=== PATIENT | female | born 2000 | race Caucasian/White ===

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

== ENCOUNTER 2021-02-01 21:50 | Emergency (ER) | payer OTHER ==
[~2021-02-01] VITALS: Ht 154.9 cm; Wt 58.1 kg
[2021-02-01 22:55] LABS: Alanine Aminotransfer (ALT/SGP 21 U/L (12-78); Albumin, Blood 3.9 g/dL (3.4-5.0); Alk Phos 96 U/L (45-116); Anion Gap 11 mmol/L (6-16); Aspartate Aminotrans (AST/SGOT 31 U/L (12-37); Beta HCG, Quantitative, Serum 495 mIU/mL (0-3); Bilirubin, Total 0.4 mg/dL (0.1-1.0); Blood Urea Nitrogen 11 mg/dL (8-21); Bun/Creatinine Ratio 19.9 (12.0-20.0); CO2, Blood 19 mmol/L (21-32); Calcium, Blood 9.1 mg/dL (8.5-10.1); Chloride, Blood 109 mmol/L (98-108); Creatinine, Blood 0.55 mg/dL (0.40-1.00); Glomerular Filtration Rate >60 (60-); Glucose, Blood 115 mg/dL (70-99); Potassium, Blood 4.1 mmol/L (3.5-5.5); Sodium, Blood 139 mmol/L (136-145); Total Protein, Blood 7.9 g/dL (6.4-8.2)
[2021-02-01 23:06] LABS: Source, Urine Clean Catch
[2021-02-01 23:09] LABS: BASOPHILS ABSOLUTE AUTO 0.05 K/mm3 (0.00-0.23); BASOPHILS PERCENT AUTO 1 % (0-2); EOSINOPHILS ABSOLUTE AUTO 0.03 K/mm3 (0.00-0.68); EOSINOPHILS PERCENT AUTO 0 % (0-6); Hematocrit 35.7 % (33.0-51.0); Hemoglobin 11.8 g/dL (11.5-16.0); IMMATURE GRAN ABSOLUTE AUTO 0.02 K/mm3 (0.00-0.10); IMMATURE GRAN PERCENT AUTO 0 % (0-1); LYMPHOCYTES ABSOLUTE AUTO 1.93 K/mm3 (0.84-5.20); LYMPHOCYTES PERCENT AUTO 22 % (21-46); MONOCYTES ABSOLUTE AUTO 0.68 K/mm3 (0.16-1.47); MONOCYTES PERCENT AUTO 8 % (4-13); Mean Corpuscular HGB 29.6 pg (26.0-34.0); Mean Corpuscular HGB Conc 33.1 g/dL (31.5-36.5); Mean Corpuscular Volume 90 fL (80-100); Mean Platelet Volume 9.3 fL (9.1-12.4); NEUTROPHILS ABSOLUTE AUTO 6.01 K/mm3 (1.96-9.15); NEUTROPHILS PERCENT AUTO 69 % (41-73); Platelet Count 287 K/mm3 (150-400); RDW Coefficient Variation 12.7 % (11.7-14.2); RDW Standard Deviation 41.7 fL (35.1-46.3); Red Blood Cell Count 3.99 M/mm3 (3.80-5.20); White Blood Cell Count 8.72 K/mm3 (4.00-11.30)
[2021-02-01 23:17] LABS: Bilirubin, Urine Neg (Neg); Blood, Urine Neg (Neg); Glucose Qualitative, Urine Neg (Neg); Ketones, Urine Neg (Neg); Leukocyte Esterase, Urine 1+ (Neg); Nitrite, Urine Neg (Neg); Protein, Urine 1+ (Neg); Specific Gravity, Urine 1.025 (1.003-1.022); Urobilinogen, Urine NORM (Normal)
[2021-02-01 23:55] LABS: Appearance, Urine Hazy (Clear); Color, Urine Yellow (P-Yellow)
[2021-02-01 23:56] LABS: Bacteria Many /hpf; Mucus Light (0-Heavy); Red Blood Cells, Urine Not Seen /hpf (0-2); Squamous Epithelial Cells Many /hpf (Few)
== END 2021-02-02 00:04 | disposition home or self-care (01) ==
LOC: ER 21:50
PROVIDERS: Physician Assistant
DX: O20.9 Hemorrhage in early pregnancy, unspecified (principal); Z3A.01 Less than 8 weeks gestation of pregnancy
CPT/HCPCS: 36415; 76801; 76817; 80053; 81001; 84702; 85025; 86850; 86900; 86901; 87086; 99284-25

== ENCOUNTER 2021-02-05 14:56 | Emergency (ER) | payer OTHER ==
[~2021-02-05] VITALS: Ht 154.9 cm; Wt 58.1 kg
[2021-02-05 17:07] LABS: Alanine Aminotransfer (ALT/SGP 18 U/L (12-78); Albumin, Blood 3.9 g/dL (3.4-5.0); Alk Phos 97 U/L (45-116); Anion Gap 9 mmol/L (6-16); Aspartate Aminotrans (AST/SGOT 15 U/L (12-37); Bilirubin, Total 0.5 mg/dL (0.1-1.0); Blood Urea Nitrogen 7 mg/dL (8-21); Bun/Creatinine Ratio 12.5 (12.0-20.0); CO2, Blood 22 mmol/L (21-32); Chloride, Blood 108 mmol/L (98-108); Creatinine, Blood 0.56 mg/dL (0.40-1.00); Globulin, Blood 3.8 g/dL (2.2-4.0); Glomerular Filtration Rate >60 (60-); Glucose, Blood 103 mg/dL (70-99); Potassium, Blood 3.7 mmol/L (3.5-5.5); Sodium, Blood 139 mmol/L (136-145); Total Protein, Blood 7.7 g/dL (6.4-8.2)
[2021-02-05 17:37] LABS: Source, Urine Clean Catch
[2021-02-05 17:47] LABS: Appearance, Urine Clear (Clear); Bilirubin, Urine Neg (Neg); Blood, Urine Neg (Neg); Color, Urine Yellow (P-Yellow); Glucose Qualitative, Urine Neg (Neg); Ketones, Urine Neg (Neg); Leukocyte Esterase, Urine Neg (Neg); Nitrite, Urine Neg (Neg); Protein, Urine Neg (Neg); Specific Gravity, Urine 1.015 (1.003-1.022); Urobilinogen, Urine NORM (Normal)
[2021-02-05 17:53] LABS: BASOPHILS ABSOLUTE AUTO 0.05 K/mm3 (0.00-0.23); BASOPHILS PERCENT AUTO 1 % (0-2); EOSINOPHILS ABSOLUTE AUTO 0.01 K/mm3 (0.00-0.68); EOSINOPHILS PERCENT AUTO 0 % (0-6); Hematocrit 36.3 % (33.0-51.0); Hemoglobin 12.4 g/dL (11.5-16.0); IMMATURE GRAN ABSOLUTE AUTO 0.02 K/mm3 (0.00-0.10); IMMATURE GRAN PERCENT AUTO 0 % (0-1); LYMPHOCYTES ABSOLUTE AUTO 1.08 K/mm3 (0.84-5.20); LYMPHOCYTES PERCENT AUTO 12 % (21-46); MONOCYTES ABSOLUTE AUTO 0.53 K/mm3 (0.16-1.47); MONOCYTES PERCENT AUTO 6 % (4-13); Mean Corpuscular HGB 29.6 pg (26.0-34.0); Mean Corpuscular HGB Conc 34.2 g/dL (31.5-36.5); Mean Corpuscular Volume 87 fL (80-100); Mean Platelet Volume 9.4 fL (9.1-12.4); NEUTROPHILS ABSOLUTE AUTO 7.06 K/mm3 (1.96-9.15); NEUTROPHILS PERCENT AUTO 81 % (41-73); Platelet Count 320 K/mm3 (150-400); RDW Coefficient Variation 12.5 % (11.7-14.2); RDW Standard Deviation 39.8 fL (35.1-46.3); Red Blood Cell Count 4.19 M/mm3 (3.80-5.20); White Blood Cell Count 8.75 K/mm3 (4.00-11.30)
== END 2021-02-05 18:11 | disposition home or self-care (01) ==
LOC: ER 14:56
PROVIDERS: Physician Assistant
DX: O20.9 Hemorrhage in early pregnancy, unspecified (principal); Z3A.01 Less than 8 weeks gestation of pregnancy; Z79.899 Other long term (current) drug therapy
CPT/HCPCS: 36415; 76801; 76817; 80053; 81003; 84702; 85025; 86850; 86900; 86901; 99284-25

== ENCOUNTER 2022-08-12 14:58 | Emergency (ER) | payer OTHER ==
[~2022-08-12] VITALS: Ht 154.9 cm; Wt 54.0 kg
[~2022-08-12 14:58] MED LIST changes: +ONDA4ODT MM; +PRENA1 CHEW TA1.4 MG PO
[2022-08-12 16:35] VITALS: BP 114/75
[2022-08-12] MEDS ORDERED: CETI5 (17:02)
== END 2022-08-12 17:35 | disposition left against medical advice (07) ==
LOC: ER 14:58
DX: R10.2 Pelvic and perineal pain (principal); R11.2 Nausea with vomiting, unspecified
CPT/HCPCS: 76830; 76856; 99284-25

== ENCOUNTER → 2023-09-16 | Outpatient (CLI) | payer OTHER ==
[~2023-09-16] MED LIST changes: +CETI5
[2023-09-17 07:47] LABS: Bacterial Vaginosis PCR Negative (NEGATIVE); Candida Group, PCR NOT DETECTED (NOT DETECT); Candida glabrata-krusei, PCR NOT DETECTED (NOT DETECT)
[2023-09-17 08:19] LABS: Chlamydia Trachomatis Urine NOT DETECTED (NOT DETECT); Neisseria Gonorrhoea Urine NOT DETECTED (NOT DETECT)
[2023-09-19 16:22] LABS: HIV 1,2 COMBO ANTIGEN/ANTIBODY Negative (Negative)
== END ==
LOC: LAB SHORT 17:39 → LAB 17:39
PROVIDERS: Nurse Practitioner Family
DX: Z72.51 High risk heterosexual behavior (principal)
CPT/HCPCS: 86592; 87389; 87481; 87661; 87801

== ENCOUNTER → 2023-09-16 | Outpatient (CLI) | payer OTHER | LOC: LAB 17:39 → LAB SHORT 17:39 | DX: R30.0 Dysuria (principal) | CPT/HCPCS: 87086 ==

== ENCOUNTER → 2023-09-23 | Outpatient (CLI) | payer OTHER | END | disposition home or self-care (01) | LOC: LAB SHORT 18:51 | DX: R30.0 Dysuria (principal) | CPT/HCPCS: 87086 ==

== ENCOUNTER 2024-04-02 09:36 | Emergency (ER) | payer BC ==
[~2024-04-02] VITALS: Ht 157.5 cm; Wt 61.2 kg
[2024-04-02 10:21] VITALS: BP 129/92
[2024-04-02 10:52] LABS: BASOPHILS ABSOLUTE AUTO 0.06 K/mm3 (0.00-0.23); BASOPHILS PERCENT AUTO 1 % (0-2); EOSINOPHILS ABSOLUTE AUTO 0.09 K/mm3 (0.00-0.68); EOSINOPHILS PERCENT AUTO 2 % (0-6); Hematocrit 38.3 % (33.0-51.0); Hemoglobin 13.5 g/dL (11.5-16.0); IMMATURE GRAN ABSOLUTE AUTO 0.01 K/mm3 (0.00-0.10); IMMATURE GRAN PERCENT AUTO 0 % (0-1); LYMPHOCYTES ABSOLUTE AUTO 1.48 K/mm3 (0.84-5.20); LYMPHOCYTES PERCENT AUTO 29 % (21-46); MONOCYTES ABSOLUTE AUTO 0.52 K/mm3 (0.16-1.47); MONOCYTES PERCENT AUTO 10 % (4-13); Mean Corpuscular HGB 31.3 pg (26.0-34.0); Mean Corpuscular HGB Conc 35.2 g/dL (31.5-36.5); Mean Corpuscular Volume 89 fL (80-100); Mean Platelet Volume 9.2 fL (9.1-12.4); NEUTROPHILS ABSOLUTE AUTO 3.01 K/mm3 (1.96-9.15); NEUTROPHILS PERCENT AUTO 58 % (41-73); Platelet Count 326 K/mm3 (150-400); RDW Coefficient Variation 11.6 % (11.7-14.2); RDW Standard Deviation 37.9 fL (35.1-46.3); Red Blood Cell Count 4.31 M/mm3 (3.80-5.20); White Blood Cell Count 5.17 K/mm3 (4.00-11.30)
[2024-04-02 11:18] LABS: Albumin/Globulin Ratio 1.1 (0.8-1.8); Bilirubin, Total 0.4 mg/dL (0.1-1.0); Bun/Creatinine Ratio 20.8 (12.0-20.0); Calcium, Blood 8.6 mg/dL (8.5-10.1); Creatinine, Blood 0.58 mg/dL (0.40-1.00); Globulin, Blood 3.8 g/dL (2.2-4.0); Potassium, Blood 3.8 mmol/L (3.5-5.5); Total Protein, Blood 7.8 g/dL (6.4-8.2)
== END 2024-04-02 13:03 | disposition home or self-care (01) ==
LOC: ER 09:36
PROVIDERS: Student in an Organized Health Care Education/Training Program
DX: O03.9 Complete or unspecified spontaneous abortion without complication (principal); Z59.89 Other problems related to housing and economic circumstances
CPT/HCPCS: 76801; 76830; 80053; 84702; 85025; 86850; 86900; 86901; 99284-25

== ENCOUNTER → 2024-07-02 | Outpatient (CLI) | payer BC | LOC: LAB SHORT 16:00 → LAB 16:00 | DX: R30.0 Dysuria (principal) | CPT/HCPCS: 87077; 87086; 87186 ==

== ENCOUNTER 2024-07-03 11:10 | Emergency (ER) | payer BC, OTHER ==
[~2024-07-03] VITALS: Ht 157.5 cm; Wt 63.5 kg
[2024-07-03 11:32] VITALS: BP 139/101
[2024-07-03 12:27] LABS: Source, Urine Clean Catch
[2024-07-03 12:35] LABS: Appearance, Urine Clear (Clear); Blood, Urine 1+ (Neg); Glucose Qualitative, Urine Neg (Neg); Ketones, Urine Neg (Neg); Leukocyte Esterase, Urine 2+ (Neg); Nitrite, Urine Pos (Neg); Protein, Urine 2+ (Neg); Urobilinogen, Urine 4+ (Normal)
[2024-07-03 12:44] LABS: Bilirubin, Urine 3+ (Neg)
[2024-07-03 12:45] LABS: Color, Urine Orange (P-Yellow)
[2024-07-03 12:47] LABS: Bacteria Mod /hpf; Red Blood Cells, Urine 0-2 /hpf (0-2); Squamous Epithelial Cells Few /hpf (Few); White Blood Cells, Urine 25-50 /hpf (0-5)
[2024-07-03] MEDS ORDERED: CEPH500 PO (12:52)
== END 2024-07-03 12:53 | disposition home or self-care (01) ==
LOC: ER 11:10
PROVIDERS: Physician Assistant
DX: N39.0 Urinary tract infection, site not specified (principal); Z79.899 Other long term (current) drug therapy
CPT/HCPCS: 81001; 81025; 87077; 87086; 87186; 99284

== ENCOUNTER → 2025-01-30 | Outpatient (CLI) | payer BC, OTHER ==
[~2025-01-30] MED LIST changes: +ASPI81CH PO; +Percocet 5-3251 EACH PO
== END ==
LOC: LAB SHORT 17:05 → LAB 17:05
DX: R82.90 Unspecified abnormal findings in urine (principal)
CPT/HCPCS: 87086

== ENCOUNTER 2025-01-31 03:42 | Emergency (ER) | payer BC, OTHER ==
[~2025-01-31] VITALS: Ht 154.9 cm; Wt 63.5 kg
[~2025-01-31 03:42] MED LIST changes: -ASPI81CH PO; -Percocet 5-3251 EACH PO
[2025-01-31] MEDS ORDERED: ASPI81CH PO (04:41)
[2025-01-31 05:04] LABS: Source, Urine Clean Catch
[2025-01-31 05:10] LABS: BASOPHILS ABSOLUTE AUTO 0.04 K/mm3 (0.00-0.23); BASOPHILS PERCENT AUTO 1 % (0-2); EOSINOPHILS ABSOLUTE AUTO 0.06 K/mm3 (0.00-0.68); EOSINOPHILS PERCENT AUTO 1 % (0-6); Hematocrit 30.6 % (33.0-51.0); Hemoglobin 10.7 g/dL (11.5-16.0); IMMATURE GRAN ABSOLUTE AUTO 0.02 K/mm3 (0.00-0.10); IMMATURE GRAN PERCENT AUTO 0 % (0-1); LYMPHOCYTES ABSOLUTE AUTO 1.19 K/mm3 (0.84-5.20); LYMPHOCYTES PERCENT AUTO 19 % (21-46); MONOCYTES ABSOLUTE AUTO 0.46 K/mm3 (0.16-1.47); MONOCYTES PERCENT AUTO 7 % (4-13); Mean Corpuscular HGB Conc 35.0 g/dL (31.5-36.5); Mean Corpuscular Volume 88 fL (80-100); NEUTROPHILS ABSOLUTE AUTO 4.43 K/mm3 (1.96-9.15); NEUTROPHILS PERCENT AUTO 72 % (41-73); NRBC ABSOLUTE 0.00 K/mm3 (0.00-0.02); NRBC Auto 0.0 /100 WBC (0.0-0.2); Platelet Count 268 K/mm3 (150-400); RDW Coefficient Variation 12.1 % (11.7-14.2); RDW Standard Deviation 38.5 fL (35.1-46.3)
[2025-01-31 05:26] LABS: Bilirubin, Urine Neg (Neg); Color, Urine Yellow (P-Yellow); Glucose Qualitative, Urine Neg (Neg); Ketones, Urine 2+ (Neg); Leukocyte Esterase, Urine 1+ (Neg); Protein, Urine 2+ (Neg); Specific Gravity, Urine 1.020 (1.003-1.022); Urobilinogen, Urine NORM (Normal)
[2025-01-31 05:41] LABS: Alanine Aminotransfer (ALT/SGP 19.0 U/L (12-78); Albumin, Blood 3.0 g/dL (3.4-5.0); Albumin/Globulin Ratio 0.8 (0.8-1.8); Anion Gap 12.0 mmol/L (3-11); Aspartate Aminotrans (AST/SGOT 15.0 U/L (12-37); Bilirubin, Total 0.3 mg/dL (0.1-1.0); Blood Urea Nitrogen 6.0 mg/dL (8-24); CO2, Blood 19.0 mmol/L (21-32); Calcium, Blood 8.5 mg/dL (8.5-10.1); Chloride, Blood 109.0 mmol/L (98-108); Creatinine, Blood 0.46 mg/dL (0.40-1.00); Globulin, Blood 3.7 g/dL (2.2-4.0); Glucose, Blood 81.0 mg/dL (70-99); Potassium, Blood 3.6 mmol/L (3.5-5.5); Sodium, Blood 136.0 mmol/L (136-145); Total Protein, Blood 6.7 g/dL (6.4-8.2)
[2025-01-31 07:04] LABS: Source, Urine Clean Catch
[2025-01-31 07:16] LABS: Bilirubin, Urine Neg (Neg); Color, Urine Yellow (P-Yellow); Glucose Qualitative, Urine Neg (Neg); Ketones, Urine 3+ (Neg); Leukocyte Esterase, Urine 3+ (Neg); Protein, Urine 2+ (Neg); Specific Gravity, Urine 1.010 (1.003-1.022); Urobilinogen, Urine NORM (Normal)
[2025-01-31] MEDS ORDERED: CefTRIAXone Sodium 1,000 MG in NS 100 ML IV ONE (08:00)
[2025-01-31] MEDS ORDERED: CEPH500 PO (14:32)
[2025-01-31 15:02] VITALS: BP 105/72
== END 2025-01-31 15:04 | disposition home or self-care (01) ==
LOC: ER 03:42
PROVIDERS: Family Medicine
DX: O99.891 Other specified diseases and conditions complicating pregnancy (principal); R10.A1 Flank pain, right side; Z59.89 Other problems related to housing and economic circumstances; Z79.82 Long term (current) use of aspirin; Z79.2 Long term (current) use of antibiotics
CPT/HCPCS: 74181; 76770; 76815; 80053; 81001; 83690; 85025; 87086; 96365; 99284-25; A9270; J0696

== ENCOUNTER 2025-02-01 11:04 | Observation (INO) | payer BC, OTHER ==
[~2025-02-01] VITALS: Ht 154.9 cm; Wt 63.6 kg
[~2025-02-01 11:04] MED LIST changes: +ASPI81CH PO
[2025-02-01 13:02] LABS: EOSINOPHILS PERCENT AUTO 1 % (0-6); RDW Coefficient Variation 12.1 % (11.7-14.2)
[2025-02-01 13:20] LABS: Alanine Aminotransfer (ALT/SGP 20.0 U/L (12-78); Albumin, Blood 3.5 g/dL (3.4-5.0); Albumin/Globulin Ratio 0.9 (0.8-1.8); Anion Gap 9.0 mmol/L (3-11); Aspartate Aminotrans (AST/SGOT 16.0 U/L (12-37); Bilirubin, Total 0.4 mg/dL (0.1-1.0); Blood Urea Nitrogen 7.0 mg/dL (8-24); CO2, Blood 21.0 mmol/L (21-32); Calcium, Blood 9.1 mg/dL (8.5-10.1); Chloride, Blood 107.0 mmol/L (98-108); Creatinine, Blood 0.46 mg/dL (0.40-1.00); Globulin, Blood 3.9 g/dL (2.2-4.0); Glucose, Blood 98.0 mg/dL (70-99); Potassium, Blood 3.5 mmol/L (3.5-5.5); Sodium, Blood 133.0 mmol/L (136-145); Total Protein, Blood 7.4 g/dL (6.4-8.2)
[2025-02-01 13:22] LABS: BASOPHILS ABSOLUTE AUTO 0.06 K/mm3 (0.00-0.23); BASOPHILS PERCENT AUTO 1 % (0-2); EOSINOPHILS ABSOLUTE AUTO 0.06 K/mm3 (0.00-0.68); Hematocrit 33.2 % (33.0-51.0); Hemoglobin 11.9 g/dL (11.5-16.0); IMMATURE GRAN ABSOLUTE AUTO 0.08 K/mm3 (0.00-0.10); IMMATURE GRAN PERCENT AUTO 1 % (0-1); LYMPHOCYTES ABSOLUTE AUTO 1.34 K/mm3 (0.84-5.20); LYMPHOCYTES PERCENT AUTO 14 % (21-46); MONOCYTES ABSOLUTE AUTO 0.46 K/mm3 (0.16-1.47); MONOCYTES PERCENT AUTO 5 % (4-13); Mean Corpuscular HGB Conc 35.8 g/dL (31.5-36.5); Mean Corpuscular Volume 86 fL (80-100); NEUTROPHILS ABSOLUTE AUTO 7.68 K/mm3 (1.96-9.15); NEUTROPHILS PERCENT AUTO 79 % (41-73); NRBC ABSOLUTE 0.02 K/mm3 (0.00-0.02); NRBC Auto 0.2 /100 WBC (0.0-0.2); RDW Standard Deviation 37.7 fL (35.1-46.3)
[2025-02-01 15:09] LABS: Source, Urine Clean Catch
[2025-02-01 15:24] LABS: Bilirubin, Urine Neg (Neg); Color, Urine Yellow (P-Yellow); Glucose Qualitative, Urine Neg (Neg); Ketones, Urine 4+ (Neg); Leukocyte Esterase, Urine 1+ (Neg); Protein, Urine 1+ (Neg); Specific Gravity, Urine 1.025 (1.003-1.022); Urobilinogen, Urine NORM (Normal)
[2025-02-01] MEDS ORDERED: FentaNYL Citrate 50 MCG/ML 2 ML Injection IV ONE (18:20)
[2025-02-01] MEDS ORDERED: Ondansetron HCl 2 MG / ML 2ML Vial IV ONE (18:20)
[2025-02-01] MEDS ORDERED: Ketorolac Tromethamine 15mg Vial IV ONE (18:20)
[2025-02-01] MEDS ORDERED: Ondansetron HCl 2 MG / ML 2ML Vial IV PRN (18:25)
[2025-02-01] MEDS ORDERED: FentaNYL Citrate 50 MCG/ML 2 ML Injection IV PRN (18:25)
[2025-02-01] MEDS ORDERED: Ketorolac Tromethamine 30mg Vial IV PRN (18:30)
[2025-02-01 20:58] VITALS: BP 100/66
[2025-02-01] MEDS ORDERED: CefTRIAXone Sodium 1,000 MG in NS 100 ML IV SCH (21:00)
--- NOTE | 2025-02-02 00:11 | NUR ---
PER [facility] IN [facility] THEY ARE UNABLE TO OBTAIN HEART TONES ON TWINS ORDERED DUE TO INABILITY TO CONFIRM THEY ARE OBTAINING HEART BEAT OF 1 BABY OR TWO.ALSO, CHANTALE STATED IT MAY BE DIFFICULT TO OBTAIN HEART TONES IN GENERAL DUE TO GESTATIONAL AGE OF 16 WEEKS. [facility] SAID THEY HAVE US EQUIPMENT IN [facility] THAT DOCTORS USE FOR THIS.I CALLED DR NORWOOD AND HE TOLD ME TO CANCEL HEART TONES FOR TONIGHT AND HE INTENDS TO USE US FOR CHECK IN AM.
[2025-02-02 02:04] VITALS: BP 93/57
--- NOTE | 2025-02-02 04:37 | NUR ---
SHIFT SUMMARY ADMITTED TO SURGICAL FLOOR LAST NIGHT FOR PYELONEPHRITIS. PT 17WK W/TWINS. AOX4. VSS. DENIES DYSPNEA. MEDICATED W/ZOFRAN IN ER & PT HAS DENIED ANY FURTHER NAUSEA OR EMESIS. REPORTS LAST MEAL WAS APPROX 2 DAYS AGO, DUE TO LACK OF APPETITE & N/V. REPORTS 4/10 R FLANK PAIN, WORSE W/MOVEMENT OR TOUCH TO FLANK, MEDICATED 1x W/TORADOL PER EMAR ORDERS & PT ABLE TO REST SOUNDLY W/O FURTHER PAIN COMPLAINTS. RECIEVING IV ABX & FLUID. WONDERBIBI TO ROUND IN AM & CHECK HEART TONES. CALL LIGHT IN REACH.
[2025-02-02 07:46] VITALS: BP 106/57
[2025-02-02 14:37] VITALS: BP 106/62
--- NOTE | 2025-02-02 16:19 | NUR ---
WONDERBIBI IN TO SEE PT.
--- NOTE | 2025-02-02 17:02 | NUR ---
SUMMARY NO ACUTE CHANGES T/O SHIFT. PT TOLERATING SMALL AMOUNTS OF FULL LIQUIDS. DENIES N/V. PAIN MANAGED W/TORADOL PER ORDERS. IV FLUIDS INFUSING PER ORDERS. PT INDEPENDENT IN . DR NORWOOD IN THIS AFTERNOON TO SEE PT AND ASSESSED FHTs.
[2025-02-02 19:55] VITALS: BP 99/61
[2025-02-03 02:55] VITALS: BP 94/63
--- NOTE | 2025-02-03 05:15 | NUR ---
SHIFT SUMMARY AOX4. REPORTS PAIN TONIGHT IS MUCH "BETTER," 4-6/10 PAIN LEVEL. MEDICATED 2x W/30MG IV TORADOL. STATES PAIN LEVEL DECREASES TO 1/10 & ABLE TO SLEEP WELL T/O NIGHT. TOLERATING FULL LIQUIDS, DENIES N/V. RECIEVING LR @125ML/HR & IV ABX. CALL LIGHT IN REACH & PT ABLE TO MAKE NEEDS KNOWN.
[2025-02-03 07:17] VITALS: BP 97/56
[2025-02-03] MEDS ORDERED: OxyCODONE 5 mg/Acetamin 325 mg TABLET PO PRN (08:20)
[2025-02-03] MEDS ORDERED: ONDA4ODT MM (15:04)
[2025-02-03] MEDS ORDERED: CEPH500 PO (15:04)
[2025-02-03] MEDS ORDERED: Percocet 5-3251 EACH PO (15:05)
[2025-02-03 15:09] VITALS: BP 110/76
--- NOTE | 2025-02-03 15:17 | NUR ---
WONDERBIBI IN TO SEE PT. DISCHARGE ORDERS OBTAINED.
--- NOTE | 2025-02-03 15:25 | NUR ---
DISCHARGED S.O. DROPPED OFF PERCOCET PRESCRIPTION TO [facility]. ZOFRAN SCRIPT FAXED TO [facility]. VSS. REVIEWED DC INSTRUCTIONS W/PT AND S.O.; VERBALIZED UNDERSTANDING. PT DECLINED WC, ELECTING TO LEAVE BY AMBULATION, ACCOMPANIED BY S.O., HAD POSSESSIONS AND DC PAPERWORK IN HAND.
== END 2025-02-03 15:34 | disposition home or self-care (01) ==
LOC: ER 11:04 → ERHOLD 11:05 → SURS 11:05
PROVIDERS: Physician Assistant; ADMIT Obstetrics & Gynecology
DX: O99.891 Other specified diseases and conditions complicating pregnancy (principal); R10.A1 Flank pain, right side; N13.30 Unspecified hydronephrosis; O30.002 Twin pregnancy, unspecified number of placenta and unspecified number of amniotic sacs, second trimester; Z3A.16 16 weeks gestation of pregnancy; Z87.440 Personal history of urinary (tract) infections; Z79.2 Long term (current) use of antibiotics; Z79.82 Long term (current) use of aspirin
CPT/HCPCS: 80053; 81001; 85025; 87086; 96361; 96365; 96366; 96374; 96375; 96376; 99284-25; A9270; G0378; J0696; J1885; J2405; J3010; J7120